=== PATIENT | male | born 1985 | race African-American/Black ===

== ENCOUNTER 2016-06-09 10:52 | Emergency (ER) | payer OTHER ==
[~2016-06-09] VITALS: Ht 195.6 cm; Wt 107.0 kg
[~2016-06-09 10:52] MED LIST: IBUPROFEN; TYLENOL; [UNRECOGNIZED DRUG - OTHER]; none reported
[2016-06-09] MEDS ORDERED: IBUPROFEN 600MG TABLET PO ONE (12:45)
[2016-06-09 12:53] VITALS: BP 135/93
== END 2016-06-09 13:59 | disposition home or self-care (01) ==
LOC: ER 13:40
DX: S30.0XXA Contusion of lower back and pelvis, initial encounter (principal); J45.909 Unspecified asthma, uncomplicated; Z79.899 Other long term (current) drug therapy; Y93.89 Activity, other specified; Y99.9 Unspecified external cause status; Y92.89 Other specified places as the place of occurrence of the external cause
CPT/HCPCS: 99283

== ENCOUNTER 2017-05-18 21:08 | Emergency (ER) | payer OTHER ==
[~2017-05-18] VITALS: Ht 195.6 cm; Wt 108.0 kg
[2017-05-19 01:20] LABS: CLARITY URINE CLEAR (CLEAR); COLOR URINE YELLOW (YELLOW); KETONES URINE NEGATIVE (NEGATIVE); LEUKOCYTE ESTERASE URINE NEGATIVE (NEGATIVE); NITRITE URINE NEGATIVE (NEGATIVE); OCCULT BLOOD URINE NEGATIVE (NEGATIVE); PH URINE 6.5 (4.5-8.0); PROTEIN URINE NEGATIVE (NEGATIVE); SPECIFIC GRAVITY URINE 1.031 (1.005-1.030)
[2017-05-19] MEDS ORDERED: KETOROLAC 60MG/2ML VIAL IM ONE (01:45)
[2017-05-19 02:03] VITALS: BP 134/84
== END 2017-05-19 03:06 | disposition home or self-care (01) ==
LOC: ER 21:08
DX: M54.16 Radiculopathy, lumbar region (principal); J45.909 Unspecified asthma, uncomplicated; F12.10 Cannabis abuse, uncomplicated
CPT/HCPCS: 81003; 96372; 99283; J1885

== ENCOUNTER 2018-03-29 07:39 | Emergency (ER) | payer OTHER ==
[~2018-03-29] VITALS: Ht 195.6 cm; Wt 106.0 kg
[2018-03-29] MEDS ORDERED: IBUPROFEN 800MG TABLET PO ONE (10:30)
[2018-03-29 10:52] VITALS: BP 140/72
== END 2018-03-29 10:52 | disposition home or self-care (01) ==
LOC: ER 07:39
DX: L02.31 Cutaneous abscess of buttock (principal); L02.01 Cutaneous abscess of face; J45.909 Unspecified asthma, uncomplicated; F12.10 Cannabis abuse, uncomplicated; Z22.322 Carrier or suspected carrier of Methicillin resistant Staphylococcus aureus
CPT/HCPCS: 99283

== ENCOUNTER 2019-04-16 10:24 | Emergency (ER) | payer OTHER ==
[~2019-04-16] VITALS: Ht 188 cm; Wt 109.0 kg
[2019-04-16] MEDS ORDERED: ACETAMINOPHEN 325MG TABLET ONE (10:25)
[2019-04-16 10:27] VITALS: BP 149/81
[2019-04-16] MEDS ORDERED: ALBUTEROL (0.083%) 2.5MG/3ML NEB HHN STA (13:46)
[2019-04-16] MEDS ORDERED: IPRATROPIUM BROMIDE (0.02%) 0.5MG/2.5ML NEB HHN STA (13:46)
== END 2019-04-16 15:03 | disposition home or self-care (01) ==
LOC: ER 10:24
DX: J11.1 Influenza due to unidentified influenza virus with other respiratory manifestations (principal); J45.901 Unspecified asthma with (acute) exacerbation; F12.10 Cannabis abuse, uncomplicated
CPT/HCPCS: 71045; 87804; 94640; 99284; J7610; Z7610

== ENCOUNTER 2019-08-22 10:20 | Emergency (ER) | payer OTHER ==
[~2019-08-22] VITALS: Ht 182.9 cm; Wt 100.0 kg
[2019-08-22] MEDS ORDERED: CLINDAMYCIN 600 MG in DEXTROSE 5% WATER 50 ML IV ONE (11:15)
[2019-08-22] MEDS ORDERED: DEXAMETHASONE 4MG/ML 1ML VIAL IV ONE (11:15)
[2019-08-22] MEDS ORDERED: KETOROLAC 30MG/ML VIAL IV ONE (11:15)
[2019-08-22 12:30] VITALS: BP 146/88
== END 2019-08-22 12:42 | disposition home or self-care (01) ==
LOC: ER 10:20
DX: J36 Peritonsillar abscess (principal); F12.10 Cannabis abuse, uncomplicated; J45.909 Unspecified asthma, uncomplicated; Z79.899 Other long term (current) drug therapy
CPT/HCPCS: 96374; 96375; 99284; J1100; J1885; J3490; J7060

== ENCOUNTER 2023-09-18 14:36 | Emergency (ER) | payer OTHER ==
[~2023-09-18] VITALS: Ht 195.6 cm; Wt 107.0 kg
[2023-09-18 14:38] VITALS: PULSE 93
[2023-09-18 14:40] VITALS: BP 141/86; RESP 18; TEMP 98.9; O2SAT 100
[2023-09-18 15:40] LABS: BASOPHILS % 0.3 % (0.0-2.0); EOSINOPHILS % 1.5 % (0.0-5.0); HEMATOCRIT. 43.5 % (42.0-52.0); HEMOGLOBIN. 14.6 g/dL (14.0-18.0); MEAN CORPUSCULAR HGB CONC 33.6 g/dL (31.0-37.0); MEAN CORPUSCULAR VOLUME 95.3 fL (80.0-94.0); MONOCYTES % 8.2 % (2.0-8.0); PLATELET 229 x1000/uL (130-400); RED BLOOD CELL COUNT 4.57 mill/uL (4.7-6.1); RED CELL DISTRIBUTION WIDTH 13.2 % (11.6-14.6); WHITE BLOOD COUNT 11.6 x1000/uL (4.5-11.0)
[2023-09-18 15:50] LABS: CHLORIDE 104 mEq/L (98-107); SODIUM 136 mEq/L (136-145)
[2023-09-18 15:51] LABS: CALCIUM 9.2 mg/dL (8.7-10.4); CARBON DIOXIDE 29 mEq/L (21-32)
[2023-09-18 15:56] LABS: GLUCOSE 107 mg/dL (70-105); UREA NITROGEN BLOOD 9 mg/dL (9-23)
[2023-09-18 16:14] LABS: TROPONIN I HIGH SENSITIVITY < 4 ng/L (3.0-53)
== END 2023-09-18 17:40 | disposition home or self-care (01) ==
LOC: ER 14:36
DX: R07.9 Chest pain, unspecified (principal); I51.7 Cardiomegaly; J45.909 Unspecified asthma, uncomplicated; F12.90 Cannabis use, unspecified, uncomplicated
CPT/HCPCS: 36415; 71045; 80048; 84484; 85025; 93005; 99285

== ENCOUNTER 2024-02-26 07:16 | Emergency (ER) | payer OTHER ==
[~2024-02-26] VITALS: Ht 193 cm; Wt 104.3 kg
[2024-02-26 07:24] VITALS: TEMP 98.1; O2SAT 95
[2024-02-26] MEDS: IBUPROFEN 600MG TABLET PO ONE (09:13)
[2024-02-26] MEDS: TRAMADOL 50MG TABLET PO ONE (09:14)
[2024-02-26] MEDS ORDERED: IBUP-2029 MT (09:20)
[2024-02-26 10:41] VITALS: BP 139/99; PULSE 80; RESP 16; O2SAT 99
== END 2024-02-26 10:42 | disposition home or self-care (01) ==
LOC: ER 07:16
DX: M77.9 Enthesopathy, unspecified (principal); F12.90 Cannabis use, unspecified, uncomplicated
CPT/HCPCS: 99283

== ENCOUNTER 2024-07-16 01:01 | Emergency (ER) | payer OTHER ==
[~2024-07-16] VITALS: Ht 193 cm; Wt 120.8 kg
[~2024-07-16 01:01] MED LIST changes: +IBUP-2029 MT
[2024-07-16 01:17] VITALS: O2SAT 97
[2024-07-16 01:31] VITALS: BP 147/80; PULSE 92; RESP 18; TEMP 37; O2SAT 99
[2024-07-16 01:38] LABS: CLARITY URINE CLOUDY (CLEAR); COLOR URINE DARK YELLOW (YELLOW); GLUCOSE URINE NEGATIVE (NEGATIVE); KETONES URINE TRACE (NEGATIVE); LEUKOCYTE ESTERASE URINE 2+ (NEGATIVE); NITRITE URINE NEGATIVE (NEGATIVE); OCCULT BLOOD URINE 3+ (NEGATIVE); PH URINE 5.5 (4.5-8.0); PROTEIN URINE 3+ (NEGATIVE); SPECIFIC GRAVITY URINE 1.027 (1.005-1.030)
[2024-07-16] MEDS: CEFTRIAXONE SODIUM 500MG VIAL IM ONE (01:55)
[2024-07-16] MEDS: LIDOCAINE HCL/PF 1% 10 MG/ML 5ML VIAL INFIL ONE (01:55)
[2024-07-16 01:58] LABS: BACTERIA URINE 2+; RBC URINE TNTC /hpf (0-2); SQUAMOUS EPITHELIAL CELL URINE 1+ /lpf (RARE/1+); WBC URINE 25-50 /hpf (0-2)
[2024-07-16] MEDS ORDERED: SULF1TAB48 MT (02:27)
[2024-07-19 05:09] LABS: CHLAMYDIA TRACHOMATIS NAA Negative (Negative); NEISSERIA GONORRHOEAE NAA Negative (Negative)
== END 2024-07-16 02:34 | disposition home or self-care (01) ==
LOC: ER 01:01
DX: N39.0 Urinary tract infection, site not specified (principal); J45.909 Unspecified asthma, uncomplicated; F12.90 Cannabis use, unspecified, uncomplicated; Z79.899 Other long term (current) drug therapy; Z11.3 Encounter for screening for infections with a predominantly sexual mode of transmission
CPT/HCPCS: 99283; 86592; 87491; 87591; 81003; 87086; 87186; 87077; 36415; 96372; J0696; J2003

== ENCOUNTER 2024-10-25 00:45 | Emergency (ER) | payer OTHER ==
[~2024-10-25] VITALS: Ht 193 cm; Wt 119.0 kg
[~2024-10-25 00:45] MED LIST changes: +SULF1TAB48 MT
[2024-10-25 01:00] VITALS: O2SAT 99
[2024-10-25 01:28] LABS: BASOPHILS % 0.5 % (0.0-2.0); EOSINOPHILS % 4.2 % (0.0-5.0); HEMATOCRIT. 42.3 % (42.0-52.0); HEMOGLOBIN. 14.4 g/dL (14.0-18.0); LYMPHOCYTES % 24.4 % (20.0-50.0); MEAN PLATELET VOLUME 9.1 fl (7.4-10.4); MONOCYTES % 7.8 % (2.0-8.0); NEUTROPHILS % 63.1 % (40.0-76.0); PLATELET 202 x1000/uL (130-400); RED BLOOD CELL COUNT 4.53 mill/uL (4.7-6.1); RED CELL DISTRIBUTION WIDTH 13.4 % (11.6-14.6)
[2024-10-25 01:55] LABS: CREATININE 1.2 mg/dL (0.6-1.3); UREA NITROGEN BLOOD 15 mg/dL (9-23)
[2024-10-25 03:44] LABS: CLARITY URINE CLOUDY (CLEAR); COLOR URINE YELLOW (YELLOW); GLUCOSE URINE NEGATIVE (NEGATIVE); KETONES URINE TRACE (NEGATIVE); LEUKOCYTE ESTERASE URINE 2+ (NEGATIVE); NITRITE URINE POSITIVE (NEGATIVE); OCCULT BLOOD URINE 3+ (NEGATIVE); PH URINE 5.5 (4.5-8.0); PROTEIN URINE 2+ (NEGATIVE); SPECIFIC GRAVITY URINE 1.024 (1.005-1.030); UROBILINOGEN URINE 1.0 E.U./dL (0.2-1.0)
[2024-10-25 03:59] LABS: RBC URINE 50-100 /hpf (0-2); SQUAMOUS EPITHELIAL CELL URINE NONE SEEN /lpf (RARE/1+); WBC URINE 50-100 /hpf (0-2)
[2024-10-25 04:00] LABS: BACTERIA URINE 1+
[2024-10-25 05:22] VITALS: TEMP 36.7
[2024-10-25] MEDS ORDERED: SULF1TAB48 PO (05:32)
[2024-10-25 06:07] VITALS: BP 149/93; PULSE 84; RESP 13; O2SAT 96
== END 2024-10-25 06:10 | disposition home or self-care (01) ==
LOC: ER 01:23
DX: N39.0 Urinary tract infection, site not specified (principal); F12.90 Cannabis use, unspecified, uncomplicated; J45.909 Unspecified asthma, uncomplicated; Z79.899 Other long term (current) drug therapy
CPT/HCPCS: 36415; 80048; 81003; 85025; 87077; 87186; 99283